=== PATIENT | female | born 1970 | race Two or more races ===

== ENCOUNTER → 2025-02-22 | Day surgery (SDC) | payer MEDICAID ==
[2025-02-19 10:09] LABS: Basophils # (auto) 0.1 10 ^3/uL (0-0.2); Eosinophils # (auto) 0.2 10 ^3/uL (0-0.8); Lymphocytes # (auto) 2.1 10 ^3/uL (0.4-5.4)
[2025-02-19 10:13] LABS: Eosinophils % (auto) 1.7 % (0.0-7.0); Hematocrit 36.7 % (36.0-46.0); Hemoglobin 12.2 g/dL (12.2-16.2); Mean Corpuscular Hgb Conc. 33.2 g/dL (32.0-36.0); Mean Corpuscular Volume 78.5 fL (80.0-100.0); Monocytes # (auto) 0.8 10 ^3/uL (0-1.3); Monocytes % (auto) 7.9 % (0.0-12.0); Neutrophils # (auto) 6.7 10 ^3/uL (1.6-8.6); Neutrophils % (auto) 68.4 % (37.0-80.0); Platelet Count (auto) 339 10^3/uL (140-450); Red Blood Cells 4.67 10^6/uL (4.0-5.20); Red Cell Distribution Width 15.6 % (11.8-14.3); White Blood Cell 9.8 10^3/uL (4.4-10.8)
[2025-02-19 10:20] LABS: Alanine Aminotransferase 13 U/L (7-40); Albumin 4.8 g/dL (3.2-4.8); Alkaline Phosphatase 82 U/L (46-116); Anion Gap 8 (5-15); Aspartate Aminotransferase 14 U/L (13-40); BUN/Creatinine Ratio 14.4 (10.0-20.0); Blood Urea Nitrogen 14 mg/dL (9-23); Calcium 10.3 mg/dL (8.7-10.4); Carbon Dioxide 29 mmol/L (20-31); Chloride 106 mmol/L (98-107); Glucose 95 mg/dL (74-106); Potassium 4.2 mmol/L (3.5-5.1); Sodium 143 mmol/L (136-145); Total Protein 7.8 g/dL (5.7-8.2)
[2025-02-19 10:22] LABS: INR 0.95 (0.9-1.15); Prothrombin Time 10.1 sec (9.3-11.8)
[2025-02-19 10:27] LABS: Bilirubin, Total 0.2 mg/dL (0.2-1.0)
[2025-02-19 10:37] LABS: Urine Bacteria FEW /hpf (None Seen); Urine Blood Negative /uL (Negative); Urine Clarity Clear (Clear); Urine Color Light-Yellow (Yellow); Urine Protein, UAD Negative (Negative); Urine Specific Gravity 1.013 (1.001-1.035); Urine Squamous Epithelial Cell FEW /hpf (<5); Urine Urobilinogen Normal (Negative); Urine WBC 3 /HPF (0-5); Urine pH 7.5 (5.0-9.0)
[~2025-02-22] VITALS: Ht 167.6 cm; Wt 81.6 kg
[~2025-02-22] MED LIST: METF-370 PO; PROPOFOL 10 MG/ML 20 ML IV ONE; fentaNYL CITRATE 100 MCG/2 ML VL ONE
--- NOTE | 2025-02-22 10:30 | DVHHP2 ---
GI H&P Pre-Op Assessment Date: 02/22/25 Chief complaint: Dysphagia HPI: per clinic note Past medical history: per clinic note Past surgical history: per clinic note Family history: per clinic note Physical exam: General: NAD, AAOX3 HEENT: PERRL, no scleral icterus, normal hearing, gums without lesions or bleeding, oropharynx clear without erythema or exudate. Neck: Supple without enlargement of the thyroid, or lymphadenopathy. Chest: Normal size and shape, no tenderness, lung westfall clear to auscultation and percussion, nonlabored breathing. Heart: RRR, no murmur Abdomen: non-distended, no tenderness to palpation, +BS, no hepatosplenomegaly Extremities: no edema Neurological: CN II-XII intact, sensation intact in all extremities, 5+ strength in all extremities Skin: No rashes, No jaundice Assessment: - dysphagia Plan: - EGD - Risks (bleeding, infection, perforation, reaction to sedation medications and cardiopulmonary arrest) and benefit of the procedure were explained to patient. Patient agrees to undergo the procedure. STEWART JUAN MD Feb 22, 2025 10:30
--- NOTE | 2025-02-22 10:50 | DVHOP2 ---
Operative Report DATE OF OPERATION: 02/22/25 PROCEDURE: Upper Endoscopy. PREOPERATIVE INDICATION: The patient is a 54 -year-old female undergoing endoscopy for dysphagia. POSTOPERATIVE DIAGNOSES: 1. Gastritis 2. Hiatal hernia from 32-39 cm 3. Schatzki's ring at the GE junction. It was dilated with 18 mm balloon. 4. Grade B esophagitis PROCEDURE PERFORMED BY: Kristian Strickland SCOPE: Olympus videoendoscope. ASA CLASS: 3 PREOPERATIVE MEDICATIONS: MAC with Dr Matias PROCEDURE IN DETAIL: After obtaining an informed consent, the patient was placed on left lateral decubitus position. The patient was then sedated with the above medications. A bite block was placed between her teeth. The endoscope was then passed through the oropharynx, into the esophagus, and through the stomach and pylorus up to the second and third part of the duodenum. The duodenum was normal in appearance. There was gastritis. Gastric biopsies were obtained using cold forceps. There was hiatal hernia from 32-39 cm. The GE junction was at 32 cm. There was a Schatzki's ring at the GE junction. It was quite patent. It was dilated with 18 mm balloon. There was grade B esophagitis in the distal esophagus. The endoscope was then withdrawn. The patient tolerated the procedure well without difficulty. COMPLICATIONS : None SPECIMENS: Gastric biopsies DISPOSITION: D/C to home PLAN: 1. Await for biopsy result 2. Will place pt on Protonix 40 mg bid KRISTIAN STRICKLAND MD Feb 22, 2025 10:50
--- NOTE | 2025-02-22 10:50 | DVHDS2 ---
Physician Discharge Progress N Final Diagnosis: Gastritis, hiatal hernia, Schatzki screens, esophagitis Operations or Procedures: Operations or Procedures EGD with cold forceps biopsy and balloon dilation Condition on Discharge: Good Disposition: Home Discharge Instructions: Diet: Regular Activity: No Restrictions, As Tolerated Medications: We will place her on Protonix 40 mg b.i.d. Follow Up Care: Discharge Statement: "Patient was advised to return to the ER or call 911 if any headaches, dizziness, shortness of breath, chest pain, abdominal pain, bleeding, fevers, or worsening of medical condition. Patient was counseled about treatment plan, medications, possible side effects, patientverbalized understanding. All questions were answered to the best of my ability. This discharge took greater then 30 minutes in planning, reviewing documentation, counseling the patient, and discussing with other team members." TSEWART JUAN MD Feb 22, 2025 10:50
[2025-02-22 10:52] VITALS: TEMP 97.2; O2SAT 96
[2025-02-22 11:15] VITALS: BP 152/78; PULSE 85; RESP 12; O2SAT 98
== END | disposition home or self-care (01) ==
LOC: GI 09:14
PROVIDERS: ATTEND Internal Medicine Gastroenterology
DX: R13.10 Dysphagia, unspecified (principal); K29.50 Unspecified chronic gastritis without bleeding; K21.00 Gastro-esophageal reflux disease with esophagitis, without bleeding; K44.9 Diaphragmatic hernia without obstruction or gangrene; K22.2 Esophageal obstruction; E11.9 Type 2 diabetes mellitus without complications; Z79.84 Long term (current) use of oral hypoglycemic drugs; Z79.899 Other long term (current) drug therapy; Z96.653 Presence of artificial knee joint, bilateral; Z98.890 Other specified postprocedural states
CPT/HCPCS: 36415; 43239; 43249; 80053; 81001; 82962; 85025; 85610; 85730; 88305; 88312; 88342; C1726; J2704; J3010; J7030